=== PATIENT | female | born 1955 | race Caucasian/White ===

== ENCOUNTER → 2020-08-11 | Day surgery (SDC) | payer BC, MEDICARE ==
[2020-08-09 08:45] VITALS: BMI 24.5
[~2020-08-11] MED LIST: GLUCAGON 1 MG/ML VIAL ONE; LACTATED RINGERS 1,000 ML IV SCH; PROPOFOL 10 MG/ML 20 ML VIAL IV ONE
[2020-08-11 09:34] VITALS: RESP 16; TEMP 97.7
--- NOTE | 2020-08-11 09:46 | P.GSHP ---
History of Present Illness H&P Date: 08/11/20 Chief Complaint: GI bleed This is a 65-year-old female who presents today for colonoscopy. She had issues with GI bleed. Past Medical History Past Medical History: Hypertension Additional Past Medical History / Comment(s): HX OF THYROID NODULE (SURGERY) History of Any Multi-Drug Resistant Organisms: None Reported Past Surgical History: Section, Orthopedic Surgery Additional Past Surgical History / Comment(s): LEFT SHOULDER SURGERY, 2 C- SECTIONS, PARTIAL THYROIDECTOMY Past Anesthesia/Blood Transfusion Reactions: Postoperative Nausea & Vomiting (PONV) Additional Past Anesthesia/Blood Transfusion Reaction / Comment(s): NAUSEA WITH C-SECTIONS Past Psychological History: No Psychological Hx Reported Smoking Status: Current every day smoker Past Alcohol Use History: None Reported Additional Past Alcohol Use History / Comment(s): SMOKES 1 PPD, STARTED SMOKING AGE 15 Past Drug Use History: Marijuana Additional Drug Use History / Comment(s): SMOKES MARIJUANA - Past Family History Father Family Medical History: Cancer Additional Family Medical History / Comment(s): BLADDER CANCER Medications and Allergies Home Medications Medication Instructions Recorded Confirmed Type lisinopriL [Zestril] 10 mg PO DAILY 08/09/20 08/11/20 History Allergies Allergy/AdvReac Type Severity Reaction Status Date / Time vicryl stitches Allergy Unknown caused Uncoded 08/11/20 09:12 abscess Surgical - Exam Vital Signs Temp Pulse Resp BP Pulse Ox 97.7 F 96 16 141/70 97 08/11/20 09:08 08/11/20 09:08 08/11/20 09:08 08/11/20 09:08 08/11/20 09:08 - General well developed, well nourished, no distress - Eyes PERRL - ENT normal pinna - Neck no masses - Respiratory normal expansion - Cardiovascular Rhythm: regular - Abdomen Abdomen: soft, non tender Assessment and Plan Assessment: GI bleed. We'll perform colonoscopy.
--- NOTE | 2020-08-11 10:02 | P.OP ---
Date of Procedure: 08/11/20 Preoperative Diagnosis: GI bleed Postoperative Diagnosis: Internal and external hemorrhoids Diverticulosis Procedure(s) Performed: Colonoscopy Anesthesia: MAC Surgeon: Adriano Chavira Condition: stable Disposition: PACU Description of Procedure: The patient's placed on the endoscopy table in the lateral position she received IV sedation. Digital rectal exam was performed which revealed internal and external hemorrhoids. The flexible colonoscope was then placed patient anus and passed throughout the entire colon. The ileocecal valve was visualized. The cecum, ascending and transverse colon appeared normal. The descending colon there is a few scattered diverticula. There is more diverticular changes and sigmoid colon. The sigmoid colon appeared to be scarred and was rigid. The scope was then brought back the rectum this appeared normal. Scope was withdrawn for patient.
[2020-08-11 10:26] VITALS: BP 145/75; PULSE 76
== END | disposition home or self-care (01) ==
LOC: ORWHC2ENDO 08:31
PROVIDERS: ATTEND Surgery
DX: K64.8 Other hemorrhoids (principal); K64.4 Residual hemorrhoidal skin tags; K57.30 Diverticulosis of large intestine without perforation or abscess without bleeding; K92.2 Gastrointestinal hemorrhage, unspecified; I10 Essential (primary) hypertension; F17.210 Nicotine dependence, cigarettes, uncomplicated; E89.0 Postprocedural hypothyroidism; Z98.891 History of uterine scar from previous surgery; Z98.890 Other specified postprocedural states; Z80.52 Family history of malignant neoplasm of bladder; Z79.899 Other long term (current) drug therapy; Z91.09 Other allergy status, other than to drugs and biological substances
CPT/HCPCS: 45378; J1610; J2704